=== PATIENT | female | born 1955 | race Asian ===

== ENCOUNTER 2016-08-17 09:06 | Outpatient (CLI) | payer OTHER | END 2016-08-17 09:07 | disposition home or self-care (01) | DX: I10 Essential (primary) hypertension (principal); E78.5 Hyperlipidemia, unspecified ==

== ENCOUNTER 2016-09-08 14:04 | Outpatient (CLI) | payer OTHER | END 2016-09-08 14:05 | disposition home or self-care (01) | DX: M19.011 Primary osteoarthritis, right shoulder (principal) ==

== ENCOUNTER 2017-02-28 11:38 | Outpatient (CLI) | payer OTHER ==
--- NOTE | 2017-03-01 18:03 | Mammography Report ---
DIGITAL BILATERAL SCREENING MAMMOGRAM: 02/28/2017 CLINICAL HISTORY: Asymptomatic 61-year-old female. TECHNIQUE: Standard CC and MLO views obtained. COMPARISON: 02/2012 FINDINGS: Heterogeneously dense tissue is present. This pattern does limit mammographic sensitivity. RIGHT BREAST: The glandular pattern is unchanged given positional variation. No developing mass, distortion or pleomorphic calcifications. LEFT BREAST: There is an apparent developing nodular asymmetry in the 6 o' clock anterior position. Recommend targeted diagnostic evaluation to include spot compression views and ultrasound, if indicated. The remainder of the parenchymal pattern is stable. IMPRESSION: 1. RIGHT BREAST: STABLE EXAMINATION (BI-RADS CATEGORY 1, NEGATIVE). 2. LEFT BREAST: DEVELOPING NODULAR ASYMMETRY. RECOMMEND TARGETED DIAGNOSTIC EVALUATION. THE FINAL IMPRESSION IS PENDING AT THIS TIME (BI-RADS CATEGORY 0, INCOMPLETE). STANDARD QUALIFYING STATEMENTS 1. This examination was reviewed with the aid of Computer-Aided Detection (CAD). 2. A negative or benign imaging report should not delay biopsy if clinically suspicious findings are present. Consider surgical consultation if warranted. More than 5% of cancers are not identified by imaging. 3. Dense breasts may obscure an underlying neoplasm. JOB #: [id number] EXT JOB #: [id number] HAILEY
== END 2017-02-28 11:39 | disposition home or self-care (01) ==
LOC: DI.N 11:38
PROVIDERS: ATTEND Nurse Practitioner Gerontology
DX: Z12.31 Encounter for screening mammogram for malignant neoplasm of breast (principal); N63 Unspecified lump in breast
CPT/HCPCS: 77067

== ENCOUNTER 2017-03-29 14:04 | Outpatient (CLI) | payer OTHER ==
--- NOTE | 2017-03-29 19:32 | Ultrasound Report ---
LEFT BREAST ULTRASOUND: 03/29/2017 CLINICAL INDICATION: Persistent nodules on mammogram. TECHNIQUE: Real-time scanning was performed with advertising representative static images obtained. Ultrasound of the left lower breast was performed. At the 6 o'clock position, there is a 7 x 4 x 5 m m simple cyst, with an adjacent 3 x 5 x 2 mm cyst. No sonographically suspicious findings are apprec iated. IMPRESSION: SIMPLE CYSTS, ACCOUNTING FOR THE MAMMOGRAPHIC ABNORMALITIES. RECOMMENDATION: ROUTINE ANNUAL SCREENING UNLESS OTHERWISE CLINICALLY INDICATED. BIRADS CATEGORY: 2, BENIGN FINDINGS. JOB #: [id number] EXT JOB #:
--- NOTE | 2017-03-29 19:56 | Mammography Report ---
DIGITAL DIAGNOSTIC LEFT MAMMOGRAM: 03/29/2017 CLINICAL INDICATION: Retroareolar lesion on screening. TECHNIQUE: Left true lateral and spot compression views. COMPARISON: 02/28/2017, 03/14/2012. The left breast again demonstrates scattered fibroglandular densities. A circumscribed nodule persis ts in the 6 o'clock position of the left breast, measuring 8 mm. An adjacent, smaller circumscribed nodule is also incidentally noted on the spot compression views. No associated calcifications are se en. Please also refer to left breast ultrasound of the same day. IMPRESSION: BENIGN FINDINGS, WITH SIMPLE CYSTS ON ULTRASOUND ACCOUNTING FOR THE MAMMOGRAPHIC ABNORMA LITY. RECOMMENDATION: ROUTINE ANNUAL SCREENING UNLESS OTHERWISE CLINICALLY INDICATED. BIRADS CATEGORY: 2, BENIGN FINDINGS. STANDARD QUALIFYING STATEMENTS 1. This examination was reviewed with the aid of Computed-Aided Detection (CAD). 2. A negative or benign imaging report should not delay biopsy if clinically suspicious findings are present. Consider surgical consultation if warranted. More than 5% of cancers are not identified b y imaging. 3. Dense breasts may obscure an underlying neoplasm. JOB #: [id number] EXT JOB #:[id number]
== END 2017-03-29 14:05 | disposition home or self-care (01) ==
LOC: DI 14:04
PROVIDERS: ATTEND Nurse Practitioner Gerontology
DX: R92.8 Other abnormal and inconclusive findings on diagnostic imaging of breast (principal); N60.02 Solitary cyst of left breast
CPT/HCPCS: 76642

== ENCOUNTER 2017-05-11 08:31 | Outpatient (CLI) | payer OTHER ==
[2017-05-11 13:04] LABS: CALCIUM 8.9 mg/dL (8.5-10.3); CREATININE 0.9 mg/dL (0.4-1.0); POTASSIUM 3.7 mmol/L (3.5-5.0)
== END 2017-05-11 08:32 | disposition home or self-care (01) ==
LOC: LAB.N 08:31
PROVIDERS: ATTEND Nurse Practitioner Gerontology
DX: I10 Essential (primary) hypertension (principal)
CPT/HCPCS: 36415; 80048

== ENCOUNTER 2019-04-10 07:28 | Outpatient (CLI) | payer MEDICARE, OTHER ==
[2019-04-10 12:18] LABS: BASOPHILS % (AUTO) 0.4 %; EOSINOPHILS # (AUTO) 0.2 10^3/uL (0.0-0.7); EOSINOPHILS % (AUTO) 4.1 %; HGB - HEMOGLOBIN 13.2 g/dL (12.0-16.0); LYMPHOCYTES # (AUTO) 2.7 10^3/uL (1.5-3.5); LYMPHOCYTES % (AUTO) 47.7 %; MEAN CORPUSCULAR HEMOGLOBIN 30.1 pg (27.0-31.0); MEAN CORPUSCULAR HGB CONC 33.6 g/dL (32.0-36.0); MEAN CORPUSCULAR VOLUME 89.5 fL (81.0-99.0); MEAN PLATELET VOLUME 9.6 fL (7.9-10.8); MONOCYTES # (AUTO) 0.4 10^3/uL (0.0-1.0); MONOCYTES % (AUTO) 6.3 %; NEUTROPHILS # (AUTO) 2.3 10^3/uL (1.5-6.6); NEUTROPHILS % (AUTO) 41.3 %; PLT - PLATELET COUNT 229 10^3/uL (130-450); RED BLOOD COUNT 4.39 10^6/uL (4.20-5.40); RED CELL DISTRIBUTION WIDTH 11.5 % (12.0-15.0); WHITE BLOOD COUNT 5.6 x10^3/uL (4.8-10.8)
[2019-04-10 13:02] LABS: ALBUMIN 3.8 g/dL (3.2-5.5); ALKALINE PHOSPHATASE 71 IU/L (42-121); ALT ALANINE AMINOTRANSFERASE 26 IU/L (10-60); AST ASPARTATE AMINOTRANSFERASE 23 IU/L (10-42); BILIRUBIN,TOTAL 0.8 mg/dL (0.2-1.0); BUN - BLOOD UREA NITROGEN 13 mg/dL (6-20); CALCIUM 8.9 mg/dL (8.5-10.3); CARBON DIOXIDE - CO2 26 mmol/L (21-32); CHLORIDE 106 mmol/L (101-111); CHOLESTEROL 174 mg/dL; CREATININE 0.9 mg/dL (0.4-1.0); GFR - MDRD 63 (>89); GLUCOSE 112 mg/dL (70-100); HDL CHOLESTEROL 35 mg/dL; LDL CHOLESTEROL,CALCULATED 103 mg/dL; LDL/HDL RATIO 2.9 (<4.4); SODIUM 140 mmol/L (135-145); TOTAL PROTEIN 7.7 g/dL (6.7-8.2); VLDL CHOLESTEROL 36 mg/dL
== END 2019-04-10 07:35 | disposition home or self-care (01) ==
LOC: LAB.N 07:28
PROVIDERS: ATTEND Nurse Practitioner Gerontology
DX: I10 Essential (primary) hypertension (principal); E78.5 Hyperlipidemia, unspecified
CPT/HCPCS: 36415; 80053; 80061; 83721; 85025

== ENCOUNTER 2019-06-24 17:28 | Emergency (ER) | payer MEDICARE ==
--- NOTE | 2019-06-24 18:39 | XRAY Report ---
Reason: knee pain Procedure Date: 06/24/2019 Accession Number: [id number] / [id number] Procedure: XR - Knee 4 View RT CPT Code: Final Report FULL RESULT: EXAM: RIGHT KNEE RADIOGRAPHY EXAM DATE: 06/24/2019 06:03 PM. CLINICAL HISTORY: Knee pain. COMPARISON: None. TECHNIQUE: 4 views. FINDINGS: Bones: Normal. No fractures or bone lesions. Joints: Severe patellofemoral joint space narrowing with mild narrowing of the medial and lateral compartments. There are large marginal osteophytes. Numerous primarily posterior joint loose bodies seen. There is at least one, 12 mm anterior loose body. No joint effusion. Normal alignment. Soft Tissues: Normal. No soft tissue swelling. IMPRESSION: 1. No acute bony abnormality. 2. Advanced osteoarthritis most severe in the patellofemoral compartment. 3. Multiple intra-articular loose bodies. RADIA
[2019-06-24] MEDS ORDERED: oxyCODONE 5 MG TABLET PO STA (18:42)
[2019-06-24] MEDS ORDERED: predniSONE 20 MG TABLET PO STA (18:42)
--- NOTE | 2019-06-24 19:14 | ED Physician Documentation ---
History of Present Illness - Stated complaint Stated Complaint: RT KNEE PX - Chief complaint Chief Complaint: General - History obtained from History obtained from: Patient, Family - History of Present Illness Timing: Yesterday Pain level max: 7 Pain level now: 6 - Additonal information Additional information: 64-year-old female presents to the emergency department the right knee pain for the past 2 days. Worse with walking and bending. Better with rest. No injury. She states that there is swelling. Took ibuprofen without relief. No fevers. No joint replacement. No surgeries. Review of Systems Constitutional: denies: Fever GI: denies: Vomiting Musculoskeletal: denies: Neck pain, Back pain Neurologic: denies: Headache PD PAST MEDICAL HISTORY - Past Medical History Cardiovascular: Hypertension Respiratory: None Endocrine/Autoimmune: None Musculoskeletal: None - Past Surgical History Past Surgical History: No - Present Medications Home Medications: Ambulatory Orders Medication Instructions Recorded Confirmed Aspirin [Aspir 81] 81 mg PO DAILY 02/24/13 02/24/13 HYDROcod/ACETAM 5/325 [Vicodin 1 - 2 ea PO Q6H PRN #15 tablet 02/24/13 5/325] Multivitamin [Multi-Vitamin Daily] 1 each PO DAILY 02/24/13 02/24/13 amLODIPine [Norvasc] 10 mg PO DAILY 02/24/13 02/24/13 Meloxicam [Mobic] 15 mg PO DAILY PRN #20 tablet 06/24/19 predniSONE [Deltasone] 10 mg PO [id number] #42 tab 06/24/19 - Allergies Allergies/Adverse Reactions: Allergies Allergy/AdvReac Type Severity Reaction Status Date / Time No Known Drug Allergies Allergy Verified 02/24/13 14:41 - Social History Does the pt smoke?: No Smoking Status: Never smoker Does the pt drink ETOH?: No Does the pt have substance abuse?: No - POLST Patient has POLST: No PD ED PE NORMAL - Vitals Vital signs reviewed: Yes - General General: Alert and oriented X 3, No acute distress, Well developed/nourished - HEENT HEENT: Moist mucous membranes - Neck Neck: Supple, no meningeal sign - Cardiac Cardiac: RRR, Strong equal pulses - Respiratory Respiratory: No respiratory distress, Clear bilaterally - Derm Derm: Warm and dry - Extremities Extremities: No deformity, Other (Tender to palpation on the medial aspect of the right knee. Mild joint effusion. Mild swelling. No calf tenderness or cord. No evidence of DVT. ACL, MCL, PCL, LCL intact. NVI) - Neuro Neuro: Alert and oriented X 3 - Psych Psych: Normal mood, Normal affect Results - Vitals Vitals: Vital Signs - 24 hr 06/24/19 06/24/19 17:40 19:25 Temperature 36.5 C Heart Rate 69 63 Respiratory 18 16 Rate Blood Pressure 131/68 H 145/73 H O2 Saturation 97 99 Oxygen O2 Source Room air - Rads (name of study) Right knee x-ray Radiology: Prelim report reviewed, EMP read contemporaneously, See rad report (1. No acute bony abnormality. 2. Advanced osteoarthritis most severe in the patellofemoral compartment. 3. Multiple intra-articular loose bodies. ) PD MEDICAL DECISION MAKING - ED course Complexity details: reviewed results, re-evaluated patient, considered differential, d/w patient, d/w family ED course: Patient appears to have significant osteoarthritis on x-ray. We will place on anti-inflammatories and steroids. We will give her a walker to help her amb ulate. She is well-appearing, nontoxic. Afebrile. No evidence of DVT. No evidence of septic joint. Patient and family counseled regarding signs and symptoms for which I believe and urgent re-evaluation would be necessary. Patient with good understanding of and agreement to plan and is comfortable going home at this time This document was made in part using voice recognition software. While efforts are made to proofread this document, sound alike and grammatical errors may occur. Departure - Departure Disposition: 01 Home, Self Care Clinical Impression: Osteoarthritis Qualifiers: Osteoarthritis location: unspecified site Osteoarthritis type: unspecified Qualified Code(s): M19.90 - Unspecified osteoarthritis, unspecified site Condition: Good Instructions: ED Degenerative Joint Disease Follow-Up: Adolfo Osman PA-C [Primary Care Provider] - Within 1 week Prescriptions: Meloxicam [Mobic] 15 mg PO DAILY PRN #20 tablet PRN Reason: pain predniSONE [Deltasone] 10 mg PO [id number] #42 tab Comments: Return if you worsen. Follow-up with your doctor for further care. You appear to have severe arthritis in the right knee. Discharge Date/Time: 06/24/19 19:29
[2019-06-24 19:29] VITALS: BP 145/73
== END 2019-06-24 19:29 | disposition home or self-care (01) ==
LOC: ED 17:28
DX: M17.11 Unilateral primary osteoarthritis, right knee (principal); M23.41 Loose body in knee, right knee; I10 Essential (primary) hypertension; Z79.82 Long term (current) use of aspirin
CPT/HCPCS: 73564; 99283; 99284; A9270; J7512

== ENCOUNTER 2019-11-26 08:38 | Outpatient (CLI) | payer MEDICARE ==
[2019-11-26 13:27] LABS: BASOPHILS % (AUTO) 0.5 %; EOSINOPHILS # (AUTO) 0.2 10^3/uL (0.0-0.7); EOSINOPHILS % (AUTO) 3.8 %; HGB - HEMOGLOBIN 13.1 g/dL (12.0-16.0); LYMPHOCYTES # (AUTO) 2.9 10^3/uL (1.5-3.5); LYMPHOCYTES % (AUTO) 52.8 %; MEAN CORPUSCULAR HGB CONC 32.5 g/dL (32.0-36.0); MEAN CORPUSCULAR VOLUME 92.4 fL (81.0-99.0); MEAN PLATELET VOLUME 9.5 fL (7.9-10.8); MONOCYTES # (AUTO) 0.4 10^3/uL (0.0-1.0); MONOCYTES % (AUTO) 6.4 %; NEUTROPHILS % (AUTO) 36.3 %; PLT - PLATELET COUNT 246 10^3/uL (130-450); RED BLOOD COUNT 4.36 10^6/uL (4.20-5.40); RED CELL DISTRIBUTION WIDTH 12.2 % (12.0-15.0); WHITE BLOOD COUNT 5.5 x10^3/uL (4.8-10.8)
[2019-11-26 13:52] LABS: ALBUMIN 4.1 g/dL (3.2-5.5); ALBUMIN/GLOBULIN RATIO 1.1 (1.0-2.2); ALKALINE PHOSPHATASE 82 IU/L (42-121); ALT ALANINE AMINOTRANSFERASE 43 IU/L (10-60); AST ASPARTATE AMINOTRANSFERASE 31 IU/L (10-42); BILIRUBIN,TOTAL 0.6 mg/dL (0.2-1.0); BUN - BLOOD UREA NITROGEN 17 mg/dL (6-20); CARBON DIOXIDE - CO2 23 mmol/L (21-32); CHLORIDE 108 mmol/L (101-111); CHOLESTEROL 181 mg/dL; CREATININE 0.9 mg/dL (0.4-1.0); GLUCOSE 105 mg/dL (70-100); HDL CHOLESTEROL 36 mg/dL; LDL CHOLESTEROL,CALCULATED 113 mg/dL; LDL/HDL RATIO 3.1 (<4.4); SODIUM 139 mmol/L (135-145); TOTAL PROTEIN 7.8 g/dL (6.7-8.2); VLDL CHOLESTEROL 32 mg/dL
[2019-11-26 14:29] LABS: HB2 TOTAL 13.4 g/dL; HEMOGLOBIN A1C 0.55 g/dL; HEMOGLOBIN A1C % 5.9 % (4.6-6.2)
== END 2019-11-26 23:59 | disposition home or self-care (01) ==
LOC: LAB.WCP 08:38
PROVIDERS: ATTEND Family Medicine
DX: I10 Essential (primary) hypertension (principal); E78.5 Hyperlipidemia, unspecified
CPT/HCPCS: 36415; 80053; 80061; 83036; 83721; 84443; 85025

== ENCOUNTER 2020-01-21 17:46 | Emergency (ER) | payer MEDICARE ==
[2020-01-21 18:15] LABS: BILIRUBIN,URINE NEGATIVE (NEGATIVE); GLUCOSE, URINE (UA) NEGATIVE (NEGATIVE); KETONES,URINE (UA) NEGATIVE (NEGATIVE); LEUKOCYTE ESTERASE, URINE NEGATIVE (NEGATIVE); NITRITE,URINE NEGATIVE (NEGATIVE); OCCULT BLOOD,URINE SMALL (NEGATIVE); PROTEIN,URINE NEGATIVE (NEGATIVE); UROBILINOGEN,URINE 0.2 (NORMAL) E.U./dL (NORMAL)
[2020-01-21 18:17] LABS: CLARITY,URINE CLEAR (CLEAR)
[2020-01-21 18:29] LABS: BACTERIA,URINE None Seen /HPF (None Seen); RBC,URINE 0-5 /HPF (0-5); SQUAMOUS EPITHELIAL CELL,UR FEW Squamous (<= Few)
[2020-01-21] MEDS ORDERED: MAG HYDROX/AL HYDROX/SIMETH 30 ML UDC PO STA (18:44)
[2020-01-21] MEDS ORDERED: LIDOCAINE VISCOUS 2% 15 ML UDC MM STA (18:44)
--- NOTE | 2020-01-21 18:45 | ED Physician Documentation ---
PD HPI ABD PAIN - Stated complaint Stated Complaint: ABD PX - Chief complaint Chief Complaint: Abd Pain - History obtained from History obtained from: Patient, Family - Additional information Additional information: 64-year-old woman with history of hypertension presents with abdominal pain is been going on for about 5 days. It is been mostly in the upper abdomen but now moving down to the lower abdomen bilaterally. She recently finished a course of Augmentin for sinusitis. She has some loose stools but not overt diarrhea and not foul-smelling. She denies fevers, nausea or vomiting. No history of abdominal surgeries. Review of Systems Ten Systems: 10 systems reviewed and negative Constitutional: denies: Fever, Chills Cardiac: denies: Chest pain / pressure Respiratory: denies: Dyspnea GI: reports: Abdominal Pain, Diarrhea (mild). denies: Nausea, Vomiting PD PAST MEDICAL HISTORY - Past Medical History Cardiovascular: Hypertension Respiratory: None Endocrine/Autoimmune: None Musculoskeletal: None - Past Surgical History Past Surgical History: No - Present Medications Home Medications: Ambulatory Orders Medication Instructions Recorded Confirmed Aspirin [Aspir 81] 81 mg PO DAILY 02/24/13 02/24/13 HYDROcod/ACETAM 5/325 [Vicodin 1 - 2 ea PO Q6H PRN #15 tablet 02/24/13 5/325] Multivitamin [Multi-Vitamin Daily] 1 each PO DAILY 02/24/13 02/24/13 amLODIPine [Norvasc] 10 mg PO DAILY 02/24/13 02/24/13 Meloxicam [Mobic] 15 mg PO DAILY PRN #20 tablet 06/24/19 predniSONE [Deltasone] 10 mg PO [id number] #42 tab 06/24/19 metroNIDAZOLE [Flagyl] 500 mg PO TID #30 tablet 01/21/20 - Allergies Allergies/Adverse Reactions: Allergies Allergy/AdvReac Type Severity Reaction Status Date / Time No Known Drug Allergies Allergy Verified 02/24/13 14:41 - Social History Does the pt smoke?: No Smoking Status: Never smoker Does the pt drink ETOH?: No Does the pt have substance abuse?: No - POLST Patient has POLST: No PD ED PE NORMAL - Vitals Vital signs reviewed: Yes - General General: Alert and oriented X 3, No acute distress - Respiratory Respiratory: No respiratory distress, Clear bilaterally - Abdomen Abdomen: Normal bowel sounds, Soft, Non tender - Back Back: No CVA TTP, No spinal TTP - Extremities Extremities: No edema, No calf tenderness / cord - Neuro Neuro: Alert and oriented X 3, Normal speech Results - Vitals Vitals: Vital Signs - 24 hr 01/21/20 01/21/20 17:53 19:19 Temperature 37.6 C H Heart Rate 85 82 Respiratory 18 18 Rate Blood Pressure 143/112 H 123/74 O2 Saturation 96 100 Oxygen O2 Source Room air - EKG (time done) 1854 Rate: Rate (enter#) (75) Rhythm: NSR [place]: LAD Intervals: Normal DE QRS: Normal Ischemia: Normal ST segments Computer interpretation: Agree with computer - Labs Labs: Laboratory Tests 01/21/20 01/21/20 01/21/20 18:04 18:18 18:18 WBC 9.4 RBC 4.06 L Hgb 12.3 Hct 37.0 MCV 91.1 MCH 30.3 MCHC 33.2 RDW 11.6 L Plt Count 231 MPV 9.3 Neut # (Auto) 5.7 Lymph # (Auto) 2.7 [place] # (Auto) 0.7 Eos # (Auto) 0.2 Baso # (Auto) 0.0 Absolute Nucleated RBC 0.00 Nucleated RBC % 0.0 Sodium 138 Potassium 3.5 Chloride 103 Carbon Dioxide 25 Anion Gap 10.0 BUN 12 Creatinine 1.0 Estimated GFR (MDRD) 55 L Glucose 110 H Calcium 8.3 L Total Bilirubin 0.8 AST 21 ALT 28 Alkaline Phosphatase 60 Total Protein 6.7 Albumin 3.6 Globulin 3.1 Albumin/Globulin Ratio 1.2 Lipase 47 Urine Color YELLOW Urine Clarity CLEAR Urine pH 6.0 Ur Specific [place] 1.010 Urine Protein NEGATIVE Urine Glucose (UA) NEGATIVE Urine Ketones NEGATIVE Urine Occult Blood SMALL H Urine Nitrite NEGATIVE Urine Bilirubin NEGATIVE Urine Urobilinogen 0.2 (NORMAL) Ur Leukocyte Esterase NEGATIVE Urine RBC 0-5 Urine WBC 0-3 Ur Squamous Epith Cells FEW Squamous Urine Bacteria None Seen Ur Microscopic Review INDICATED Urine Culture Comments NOT INDICATED - Rads (name of study) Ct A/P Radiology: EMP read contemporaneously (Mural thickening of the colon consistent with generalized colitis especially the transverse colon.) PD MEDICAL DECISION MAKING - ED course ED course: 64-year-old woman with lower abdominal pain. CT imaging demonstrates colitis. She is never had a colonoscopy. C. difficile considered given recent antibiotics but no profuse diarrhea, no foul smell, and unable to give a sample here. Lab work relatively unremarkable. Discussed with patient and family need for follow-up colonoscopy and they verbalized understanding. Departure - Departure Disposition: 01 Home, Self Care Clinical Impression: Colitis Abdominal pain Qualifiers: Abdominal location: generalized Qualified Code(s): R10.84 - Generalized abdominal pain Condition: Good Record reviewed to determine appropriate education?: Yes Instructions: ED Gastroenteritis Bacterial Prescriptions: metroNIDAZOLE [Flagyl] 500 mg PO TID #30 tablet Comments: You were seen today for abdominal pain. The CAT scan demonstrates inflammation of the colon. Return if worsening. Hopefully the antibiotics will help. Regardless you need to follow-up with your primary care physician and talk about a follow-up follow-up colonoscopy, this should be done within the next couple of months but not immediately given the current inflammation of the colon. Forms: Activity restrictions
[2020-01-21 19:01] LABS: BASOPHILS % (AUTO) 0.3 %; EOSINOPHILS # (AUTO) 0.2 10^3/uL (0.0-0.7); EOSINOPHILS % (AUTO) 2.2 %; HGB - HEMOGLOBIN 12.3 g/dL (12.0-16.0); LYMPHOCYTES # (AUTO) 2.7 10^3/uL (1.5-3.5); LYMPHOCYTES % (AUTO) 28.3 %; MEAN CORPUSCULAR HEMOGLOBIN 30.3 pg (27.0-31.0); MEAN CORPUSCULAR HGB CONC 33.2 g/dL (32.0-36.0); MEAN CORPUSCULAR VOLUME 91.1 fL (81.0-99.0); MEAN PLATELET VOLUME 9.3 fL (7.9-10.8); MONOCYTES # (AUTO) 0.7 10^3/uL (0.0-1.0); MONOCYTES % (AUTO) 7.7 %; NEUTROPHILS # (AUTO) 5.7 10^3/uL (1.5-6.6); NEUTROPHILS % (AUTO) 61.1 %; PLT - PLATELET COUNT 231 10^3/uL (130-450); RED BLOOD COUNT 4.06 10^6/uL (4.20-5.40); RED CELL DISTRIBUTION WIDTH 11.6 % (12.0-15.0); WHITE BLOOD COUNT 9.4 x10^3/uL (4.8-10.8)
[2020-01-21 19:14] LABS: ALBUMIN 3.6 g/dL (3.2-5.5); ALBUMIN/GLOBULIN RATIO 1.2 (1.0-2.2); BILIRUBIN,TOTAL 0.8 mg/dL (0.2-1.0); CALCIUM 8.3 mg/dL (8.5-10.3); TOTAL PROTEIN 6.7 g/dL (6.7-8.2)
[2020-01-21] MEDS ORDERED: IOVERSOL 320 100 ML VIAL IVP ONE ×2 (19:42→20:07)
--- NOTE | 2020-01-21 20:21 | CT Report ---
PROCEDURE: Abdomen/Pelvis W INDICATIONS: abd pain iv only CONTRAST: IV CONTRAST: Optiray 320 ml: 100 PO CONTRAST: *NO PO CONTRAST TECHNIQUE: After the administration of oral and intravenous contrast, 5 mm thick sections acquired from the diap hragms to the symphysis. 5 mm thick coronal and sagittal reformats were acquired. For radiation dos e reduction, the following was used: automated exposure control, adjustment of mA and/or kV accordin g to patient size. COMPARISON: None. FINDINGS: Image quality: Excellent. ABDOMEN: Lung bases: Lung bases are clear. Heart size is normal. Solid organs: Liver and spleen are normal in size and enhancement. Gallbladder appears normal Bili anjelica system is non dilated. Pancreas enhances normally. No adrenal nodules. Kidneys demonstrate nor mal size and enhancement, without hydronephrosis. Peritoneum and bowel: Small bowel loops demonstrate normal wall thickness and caliber. In contrast, the colonic bowel loops are abnormally thickened, and this is most pronounced involving the right stephen f of the transverse colon where mural thickening is most prominent as is abnormal mural enhancement. The pattern of mural enhancement and thickening extends contiguously into the descending colon and si gmoid bowel, and overall the appearance of the colon is most likely a manifestation of colitis. No fr ee fluid or air. Nodes and vessels: No retroperitoneal or mesenteric adenopathy by size criteria. Aorta and inferior vena cava are normal in size. Miscellaneous: No ventral hernias. PELVIS: Genitourinary: Bladder wall thickness is normal. Miscellaneous: No inguinal hernias or adenopathy. Abnormal mural thickening and enhancement of the sigmoid colon within the pelvis is present, extending into the rectum. The pattern is most consistent with a combination of diverticulosis and colitis. No abscess is found. No adenopathy is seen. . Bones: No suspicious bony lesions. No vertebral body compression fractures. IMPRESSION: 1. There is a finding of generalized mural thickening and increased contrast enhancement involving th e colon, indicating likelihood of generalized colitis. The most pronounced degree of enhancement and abnormal mural thickening is at the right half of the transverse colon, where the presence of a coinc idental neoplasm cannot be entirely excluded at this time of imaging. Follow-up clinical correlation and subsequent colonoscopy may become necessary 2. No evidence of abscess formation. No solid or hollow organ lesion is seen otherwise. No adenopathy is found. Reviewed by: Julio Butcher MD on 01/21/2020 8:19 PM PDT Approved by: Julio Butcher MD on 01/21/2020 8:19 PM PDT Station ID: [id number]
[2020-01-21] MEDS ORDERED: metroNIDAZOLE 250 MG TABLET PO STA (20:34)
[2020-01-21 20:43] VITALS: BP 108/58
== END 2020-01-21 20:47 | disposition home or self-care (01) ==
LOC: ED 17:46
DX: K52.9 Noninfective gastroenteritis and colitis, unspecified (principal); I10 Essential (primary) hypertension; Z79.82 Long term (current) use of aspirin
CPT/HCPCS: 36415; 74177; 80053; 81001; 83690; 85025; 93005; 99284; A9270; Q9967; 81003; 87086

== ENCOUNTER 2020-04-07 08:40 | Outpatient (CLI) | payer MEDICARE | END 2020-04-07 23:59 | disposition home or self-care (01) | LOC: LAB.R 08:40 | PROVIDERS: ATTEND Surgery | DX: A04.72 Enterocolitis due to Clostridium difficile, not specified as recurrent (principal) | CPT/HCPCS: 87493 ==

== ENCOUNTER 2020-05-07 12:33 | Emergency (ER) | payer MEDICARE ==
[2020-05-07 12:42] VITALS: BP 148/88
--- NOTE | 2020-05-07 13:18 | ED Physician Documentation ---
History of Present Illness - Stated complaint Stated Complaint: EVANS/SINUS PX - Chief complaint Chief Complaint: Heent - History obtained from History obtained from: Patient - Additonal information Additional information: 65-year-old female presents to the emergency department for evaluation of 2 years of right-sided mouth and sinus pain. She reports that she did have a CT scan done at [facility] late last month that was unremarkable. She was referred to an ear nose throat doctor for further evaluation of the mouth and sinus pain but the ear nose throat doctor found no cause for the pain and made a recommendation for referral to a neurologist. Patient feels that the pain is worsening. She has been taking Aleve with minimal relief. On exam I note that she is wearing dentures. She reports to me that she wears her dentures all the time unless she cleans them. She does sleep in them. Sometimes she will take the dentures out but her mouth will remain painful. She has no facial swelling or asymmetry. She has no headache, no fevers, no congestion. She denies chest pain or dyspnea. She has no trismus. Review of Systems Constitutional: denies: Fever, Chills Eyes: denies: Loss of vision, Decreased vision Ears: denies: Loss of hearing, Ear pain Throat: reports: Other (mouth pain). denies: Sore throat Cardiac: denies: Chest pain / pressure, Palpitations Respiratory: denies: Dyspnea, Cough GI: denies: Abdominal Pain, Abdominal Swelling, Nausea, Vomiting : denies: Dysuria Skin: denies: Rash, Lesions Musculoskeletal: denies: Neck pain, Back pain PD PAST MEDICAL HISTORY - Past Medical History Past Medical History: Yes Cardiovascular: Hypertension Respiratory: None Endocrine/Autoimmune: None Musculoskeletal: None - Past Surgical History Past Surgical History: No - Present Medications Home Medications: Ambulatory Orders Medication Instructions Recorded Confirmed Aspirin [Aspir 81] 81 mg PO DAILY 02/24/13 02/24/13 HYDROcod/ACETAM 5/325 [Vicodin 1 - 2 ea PO Q6H PRN #15 tablet 02/24/13 5/325] Multivitamin [Multi-Vitamin Daily] 1 each PO DAILY 02/24/13 02/24/13 amLODIPine [Norvasc] 10 mg PO DAILY 02/24/13 02/24/13 Meloxicam [Mobic] 15 mg PO DAILY PRN #20 tablet 06/24/19 predniSONE [Deltasone] 10 mg PO [id number] #42 tab 06/24/19 metroNIDAZOLE [Flagyl] 500 mg PO TID #30 tablet 01/21/20 HYDROcod/ACETAM 5/325 [Dale 5/325] 1 each PO BID PRN #7 tablet 05/07/20 Ibuprofen [Motrin] 600 mg PO Q6H PRN #30 tab 05/07/20 - Allergies Allergies/Adverse Reactions: Allergies Allergy/AdvReac Type Severity Reaction Status Date / Time No Known Drug Allergies Allergy Verified 05/07/20 12:42 - Social History Does the pt smoke?: No Smoking Status: Never smoker Does the pt drink ETOH?: No Does the pt have substance abuse?: No - POLST Patient has POLST: No PD ED PE EXPANDED - General General: Alert, In Pain - HEENT HEENT: Atraumatic, Head injury, Moist mucous membranes, Other (Patient removed her dentures and I noted hard palate erythema and mild swelling with tenderness to palpation.The right upper gumline was tender but not erythematous.) - Cardiac Cardiac: Regular Rate, Radial strong equal, Cap refill < 2 sec - Respiratory Respiratory: Clear to ausultation franchesca. No: Distress, Labored - Neuro Neuro: Alert and Oriented X 3, CNII-XII intact, Cerebellar nl, Normal gait, Normal finger nose, Normal speech Results - Vitals Vitals: Vital Signs - 24 hr 05/07/20 12:39 Temperature 36.6 C Heart Rate 69 Respiratory 14 Rate Blood Pressure 148/88 H O2 Saturation 98 Oxygen O2 Source Room air PD MEDICAL DECISION MAKING - ED course Complexity details: reviewed results, re-evaluated patient, d/w patient, d/w family ED course: Female presents to the emergency department for evaluation of 2 years of mouth and face pain. Reports a recently negative CT scan at [facility] and further evaluation by an ear nose throat doctor that did not yield any results. She has been further referred to neurology. On exam today I did ask her to remove her dentures and when they were removed we noted hard palate swelling and erythema and tenderness of the gumline. I believe at this time the cause of he r chronic pain is likely ill fitting dentures. I have advised her to remove the dentures and keep them out until she is able to see her dentist again. Continue follow-up with your primary care Dr. Muller as well is completing the referral to neurology. Departure - Departure Disposition: 01 Home, Self Care Clinical Impression: Mouth pain, Denture irritation Condition: Stable Record reviewed to determine appropriate education?: Yes Follow-Up: TEX MULLER MD [Primary Care Provider] - Prescriptions: Ibuprofen [Motrin] 600 mg PO Q6H PRN #30 tab PRN Reason: Pain HYDROcod/ACETAM 5/325 [Dale 5/325] 1 each PO BID PRN #7 tablet PRN Reason: Pain Comments: Nicki I believe that the cause of your mouth pain is likely ill fitting dentures. I do recommend that you leave the dentures out of your mouth for the next few days. I have prescribed ibuprofen that I would like you to take 2-3 times a day with food and a very limited amount of hydrocodone for severe pain only. It is very important that you schedule an appointment with your dentist as soon as possible for reevaluation of your dentures to ensure that they are readjusted and fitting correctly. I do recommend you continue to follow-up with Dr. Muller as well as the neurology appointment that you have been referred to If at any point you develop facial swelling, have fevers, cannot open your mouth, have slurred speech or weakness in your arms or legs please return immediately to the ER
== END 2020-05-07 13:32 | disposition home or self-care (01) ==
LOC: ED 12:33
DX: K12.1 Other forms of stomatitis (principal); I10 Essential (primary) hypertension
CPT/HCPCS: 99282; 99283

== ENCOUNTER 2020-05-30 09:44 | Day surgery (SDC) | payer MEDICARE ==
[2020-05-30] MEDS ORDERED: fentaNYL 100 MCG/2 ML VIAL IVP ONE (09:45)
[2020-05-30] MEDS ORDERED: MIDAZOLAM 2 MG/2 ML VIAL IVP ONE (09:45)
[2020-05-30] MEDS ORDERED: LACTATED RINGERS 1,000 ML IV ONE ×2 (10:10→11:18)
[2020-05-30] MEDS ORDERED: SIMETHICONE 40 MG/0.6 ML 30 ML BOTTLE PO ONE (10:56)
[2020-05-30 11:53] VITALS: BP 126/78
== END 2020-05-30 09:45 | disposition home or self-care (01) ==
LOC: SDS 09:44
PROVIDERS: ATTEND Surgery
PROC: 0DJD8ZZ Inspection of Lower Intestinal Tract, Via Natural or Artificial Opening Endoscopic (ICD-10-PCS; principal; 2020-05-30 10:45)
DX: Z09 Encounter for follow-up examination after completed treatment for conditions other than malignant neoplasm (principal); Z87.19 Personal history of other diseases of the digestive system; K57.30 Diverticulosis of large intestine without perforation or abscess without bleeding; J45.909 Unspecified asthma, uncomplicated
CPT/HCPCS: 45378; A9270; J7120

== ENCOUNTER 2020-11-12 08:00 | Outpatient (CLI) | payer MEDICAID, MEDICARE ==
[2020-11-12 12:31] LABS: BASOPHILS % (AUTO) 0.6 %; EOSINOPHILS # (AUTO) 0.3 10^3/uL (0.0-0.7); EOSINOPHILS % (AUTO) 5.2 %; HCT - HEMATOCRIT 39.2 % (37.0-47.0); LYMPHOCYTES # (AUTO) 2.7 10^3/uL (1.5-3.5); LYMPHOCYTES % (AUTO) 54.1 %; MEAN CORPUSCULAR HEMOGLOBIN 29.7 pg (27.0-31.0); MEAN CORPUSCULAR HGB CONC 33.2 g/dL (32.0-36.0); MEAN CORPUSCULAR VOLUME 89.5 fL (81.0-99.0); MEAN PLATELET VOLUME 9.6 fL (7.9-10.8); MONOCYTES # (AUTO) 0.4 10^3/uL (0.0-1.0); MONOCYTES % (AUTO) 7.2 %; NEUTROPHILS # (AUTO) 1.7 10^3/uL (1.5-6.6); NEUTROPHILS % (AUTO) 32.9 %; PLT - PLATELET COUNT 198 10^3/uL (130-450); RED BLOOD COUNT 4.38 10^6/uL (4.20-5.40); RED CELL DISTRIBUTION WIDTH 11.7 % (12.0-15.0)
[2020-11-12 13:01] LABS: ESTIMATED AVERAGE GLUCOSE 126 mg/dL (70-100)
[2020-11-12 13:08] LABS: BILIRUBIN,URINE NEGATIVE (NEGATIVE); GLUCOSE, URINE (UA) NEGATIVE (NEGATIVE); KETONES,URINE (UA) NEGATIVE (NEGATIVE); LEUKOCYTE ESTERASE, URINE NEGATIVE (NEGATIVE); NITRITE,URINE NEGATIVE (NEGATIVE); OCCULT BLOOD,URINE TRACE-LYSE (NEGATIVE); PH,URINE 6.5 PH (5.0-7.5); PROTEIN,URINE NEGATIVE (NEGATIVE); UROBILINOGEN,URINE 0.2 (NORMAL) E.U./dL (NORMAL)
[2020-11-12 13:09] LABS: CLARITY,URINE CLEAR (CLEAR)
[2020-11-12 13:11] LABS: ALBUMIN 4.1 g/dL (3.2-5.5); ALBUMIN/GLOBULIN RATIO 1.1 (1.0-2.2); ALKALINE PHOSPHATASE 84 IU/L (42-121); ALT ALANINE AMINOTRANSFERASE 25 IU/L (10-60); AST ASPARTATE AMINOTRANSFERASE 21 IU/L (10-42); BILIRUBIN,TOTAL 0.8 mg/dL (0.2-1.0); BUN - BLOOD UREA NITROGEN 19 mg/dL (6-20); CALCIUM 9.2 mg/dL (8.5-10.3); CARBON DIOXIDE - CO2 28 mmol/L (21-32); CHLORIDE 105 mmol/L (101-111); CHOLESTEROL 180 mg/dL; GFR - MDRD 55 (>89); GLUCOSE 110 mg/dL (70-100); HDL CHOLESTEROL 36 mg/dL; LDL CHOLESTEROL,CALCULATED 90 mg/dL; LDL/HDL RATIO 2.5 (<4.4); POTASSIUM 4.1 mmol/L (3.5-5.0); SODIUM 140 mmol/L (135-145); TOTAL PROTEIN 7.7 g/dL (6.7-8.2); TRIGLYCERIDES 272 mg/dL; VLDL CHOLESTEROL 54 mg/dL
[2020-11-12 13:12] LABS: CREATININE,URINE 68.5 mg/dL; MICROALBUM/CREATININE RATIO,UR 2.9 ug/mg (<30.0); MICROALBUMIN,URINE 0.2 mg/dL (0-300.0)
[2020-11-12 13:19] LABS: THYROID STIMULATING HORMONE 1.04 uIU/mL (0.34-5.60)
[2020-11-12 13:22] LABS: RBC,URINE 0-5 /HPF (0-5); SQUAMOUS EPITHELIAL CELL,UR RARE Squamous (<= Few); WBC,URINE 0-3 /HPF (0-5)
[2020-11-12 13:23] LABS: BACTERIA,URINE Rare /HPF (None Seen)
== END 2020-11-12 23:59 | disposition home or self-care (01) ==
LOC: LAB.WCP 08:00
PROVIDERS: ATTEND Internal Medicine
DX: I10 Essential (primary) hypertension (principal); R10.9 Unspecified abdominal pain; Z13.1 Encounter for screening for diabetes mellitus; E78.5 Hyperlipidemia, unspecified; R73.03 Prediabetes
CPT/HCPCS: 36415; 80053; 80061; 81001; 82043; 82570; 83036; 83721; 84443; 85025; 87086

== ENCOUNTER 2020-12-26 14:48 | Outpatient (CLI) | payer MEDICARE ==
--- NOTE | 2020-12-26 15:58 | Ultrasound Report ---
PROCEDURE: Retroperitoneal INDICATIONS: RT FLANK PAIN TECHNIQUE: Real-time scanning was performed of the kidneys and bladder, with image documentation. COMPARISON: CT of abdomen and pelvis dated 01/21/2020 FINDINGS: Kidneys: Kidneys are normal in size. Right kidney measures 10.6 cm long; left kidney measures 10.7 cm long. Right renal cortical thickness is 1.5 cm; left renal cortical thickness is 1.2 cm. Renal c ortical echotexture is normal. No hydronephrosis or nephrolithiasis. No suspicious solid mass lesio ns. There is mild prominence of right renal collecting system which resolved after voiding. Bladder: Pre-void bladder volume is 586 mL. Post-void residual is 34 mL. Pre-void images demonstra te no intraluminal masses or stones. On pre-void images, bilateral ureteral jets are noted with colo r Doppler interrogation. (Of note, ureteral jets may not be detectable in up to 25% of cases due to insufficient differences in specific gravity between ureteral and bladder urine). Miscellaneous: No free pelvic fluid. IMPRESSION: 1. Slight prominence of right renal collecting system which resolved after voiding. No persistent hyd ronephrosis or nephrolithiasis. 2. Normal appearing urinary bladder with small amount of postvoid residual. Reviewed by: Xavier Loya MD on 12/26/2020 3:56 PM PDT Approved by: Xavier Loya MD on 12/26/2020 3:56 PM PDT Station ID: [id number]
== END 2020-12-26 14:49 | disposition home or self-care (01) ==
LOC: DI 14:48
PROVIDERS: ATTEND Internal Medicine
DX: R10.9 Unspecified abdominal pain (principal)